=== PATIENT | female | born 1995 | race Asian ===

== ENCOUNTER 2025-02-05 14:24 | Outpatient (AMB) | payer OTHER, SELFPAY ==
--- NOTE | 2025-02-05 14:27 | MHC.PC.OV ---
Vital Signs 02/05/25 14:32 Height 5 ft 1.42 in Weight 118 lb 2 oz BMI 22.0 BP 90/64 Blood Pressure Location Lt brachial Position Sitting Respiration 12 Pulse 74 Pulse Source Pulse Oximeter Temp 98.4 F Temp Source Oral Pulse Oximetry (%) 98 Oxygen Delivery Method Room Air Intake Visit Reasons: therapeutic strategy lead est care Intake Note: New paient visit Torsion Spring Coiling Machine Setter Required: No Allergies No Known Allergies Allergy (Verified 02/05/25 14:27) Medication List - Last Reconciled 02/05/25 by Lindsey Espitia MD [minoxidile 1.5 with biotin hair ] Tobacco use date assessed: 02/05/25 Dental Screening Dental Screen Date: 02/05/25 Did you have a dental visit in the last 12 months?: No Did you have a dental problem in the last 6 months where you did not have access to dental care?: No Was dental information given to patient?: Patient has dentist HPI HPI Comments History of Present Illness Details 29 year old female with a past medical history of anxiety/depression presenting for Transferring from [place] practice in [place], [place] provider ?NARDA Kruse. Anxiety/depression: Follows with therapist. She was previously on SSRI which worked great for her but she feels like it dampened her creativity Has skin condition, cysts chest, sometimes axilla. sometimes they get red and painful. Requests dermatology referral Painful balls of the feet. Patient notes no matter how much she sleeps it is difficult for her to wake up. She notes that she is unsure if she snores Patient needs dray driver referral ROS see HPI PHYSICAL EXAM: GENERAL: Alert and oriented x 3. NAD EYES: EOMI. Anicteric. HENT: Moist mucous membranes. No scleral icterus. No cervical lymphadenopathy. LUNGS: Clear to auscultation bilaterally. CARDIOVASCULAR: Regular rate and rhythm. No murmur. No JVD. ABDOMEN: Soft, non-tender +bs EXTREMITIES: No edema. Non-tender. SKIN: No rashes or lesions. Warm. NEUROLOGIC: No focal neurological deficits. CN II-XII grossly intact PSYCHIATRIC: Cooperative. 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 1. Little interest or pleasure in doing things: not at all 2. Feeling down, depressed, or hopeless: not at all 3. Trouble falling or staying asleep, or sleeping too much: not at all 4. Feeling tired or having little energy: several days 5. Poor appetite or overeating: not at all 6. Feeling bad about yourself - or that you are a failure or have let yourself or your family down: not at all 7. Trouble concentrating on things, such as reading the newspaper or watching television: not at all 8. Moving or speaking so slowly that other people could have noticed. Or the opposite - being so fidgety or restless that you have been moving around a lot more than usual: not at all 9. Thoughts that you would be better off or of hurting yourself in some way: not at all Total score: 1 Depression Screening Interpretation: Negative Depression Screening Done: Yes 45872 - PHQ-9 Billing: Yes Source: Developed by Drs. Santi Joseph, Mimi Holman, Theo Bhandari and colleagues, with an educational julianna from [employer]. Thrive Questionnaire Date Thrive assessed: 02/05/25 I am a: Patient What is your living situation today?: I have a steady place to live Within the past 12 months, did the food you bought not last and you didn't have the money to get more?: Never true Within the past 12 months, did you worry whether your food would run out before you got money to buy more?: Never true Do you have trouble paying for medicines?: No Do you have trouble getting transportation to medical appointments?: No Do you have trouble paying your heating and electricity bill?: No Do you have trouble taking care of your child, family member or friend?: No Do you have trouble with day-to-day activities such as bathing, preparing meals, shopping, managing finances, etc.?: No Are you currently unemployed and looking for a job?: No Are you interested in more education?: No Please select the resources that you would like help with: Food and Utilities Currently or been in a relationship where the following occur: No concerns reported THRIVE Score: 0 AUDIT C Alcohol Use Questionnaire (AUDIT-C) 1. How often do you have a drink containing alcohol?: Monthly or less 2. How many drinks containing alcohol do you have on a typical day when you are drinking?: 1 or 2 3. How often do you have six or more drinks on one occasion?: Never Total Score: 1 DULCE MARIA-7 AMB Questionnaire DULCE MARIA-7 Date DULCE MARIA - 7 assessed: 02/05/25 Feeling nervous, anxious, or on edge: 0 = Not at all Not being able to stop or control worryin = Not at all Worrying too much about different things: 0 = Not at all Trouble relaxin = Not at all Being so restless that it is hard to sit still: 0 = Not at all Becoming easily annoyed or irritable: 0 = Not at all Feeling afraid as if something awful might happen: 0 = Not at all Total DULCE MARIA-7 score (0-4 normal; 5-9 mild; 10-14 moderate; 15-21 severe): 0 Source: Developed by Drs. Santi Joseph, Mimi Holman, Theo Bhandari and colleagues, with an educational julianna from [employer]. DULCE MARIA-7 Assessment Billing DULCE MARIA-7 Assessment Tool: DULCE MARIA-7 Assessment 88752 Physical exam (Primary Care) Vital Signs: Last Vital Signs Temp 98.4 F 02/05/25 14:32 Pulse 74 02/05/25 14:32 Resp 12 02/05/25 14:32 BP 90/64 02/05/25 14:32 Pulse Ox 98 02/05/25 14:32 Oxygen Delivery Method Room Air 02/05/25 14:32 BMI result Body Mass Index 22.0 Tobacco/Smoking Status: Tobacco use Status Tobacco use date assessed 02/05/25 02/05/25 14:35 Patient Tobacco Use Status Never used Tobacco 02/05/25 14:35 e-Cigarette/Vaping Use Never Used 02/05/25 14:35 PHQ-9: PHQ-9 Score PHQ-9: Total score 1 02/05/25 16:21 Depression Screening Interpretation: Negative Thrive Assessment: Date of Thrive Assessment Date Thrive assessed 02/05/25 02/05/25 16:21 Currently or been in a relationship where the following occur: No concerns reported Coding Level of Care Code New Pt Level 4 (21005) Complex EM visit Add On G2211 Diagnoses Fatigue, unspecified type R53.83 Fatigue type: unspecified History of small bowel obstruction Z87.19 Telogen effluvium L65.0 Additional Codes DULCE MARIA-7 Assessment Billing - DULCE MARIA-7 Assessment Tool: DULCE MARIA-7 Assessment 62793 ([id number]) PHQ-9 - 50439 - PHQ-9 Billing: Yes ([id number]) Assessment & Plan Assessment & Plan (1) Fatigue: Code(s): R53.83 - Other fatigue Category: Medical Qualifiers: Fatigue type: unspecified Qualified Code(s): R53.83 - Other fatigue (2) History of small bowel obstruction: Code(s): Z87.19 - Personal history of other diseases of the digestive system Category: Medical (3) Telogen effluvium: Code(s): L65.0 - Telogen effluvium Category: Medical Plan 29 year old female to establish care Multiple concerns all addressed Labs ordered Sleep study ordered Referral to obgyn, dermatology, podiatry Orders: Orders Complete Blood Count Auto Diff 02/05/25 L73.2 - Hidradenitis suppurativa, Z13.0 - Encounter for screening for diseases of the blood and blood-forming organs and certain disorders involving the immune mechanism, Z13.220 - Encounter for screening for lipoid disorders, Z13.228 - Encounter for screening for other metabolic disorders TSH reflex Free T4 02/05/25 L73.2 - Hidradenitis suppurativa, Z13.0 - Encounter for screening for diseases of the blood and blood-forming organs and certain disorders involving the immune mechanism, Z13.220 - Encounter for screening for lipoid disorders, Z13.228 - Encounter for screening for other metabolic disorders Vitamin D 25-OH (D2 and D3) 02/05/25 R53.83 - Other fatigue RT PSG in-lab sleep study 02/05/25 G47.10 - Hypersomnia, unspecified, R06.83 - Snoring Comprehensive Met. Panel 02/05/25 L73.2 - Hidradenitis suppurativa, Z13.0 - Encounter for screening for diseases of the blood and blood-forming organs and certain disorders involving the immune mechanism, Z13.220 - Encounter for screening for lipoid disorders, Z13.228 - Encounter for screening for other metabolic disorders Lipid Panel 02/05/25 L73.2 - Hidradenitis suppurativa, Z13.0 - Encounter for screening for diseases of the blood and blood-forming organs and certain disorders involving the immune mechanism, Z13.220 - Encounter for screening for lipoid disorders, Z13.228 - Encounter for screening for other metabolic disorders Vitamin B12 and Folate 02/05/25 R53.83 - Other fatigue Lyme IgG/IgM w/reflex to WB 02/05/25 R53.83 - Other fatigue Referrals Dermatology Referral L73.2 - Hidradenitis suppurativa 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
[2025-02-05 14:32] VITALS: BP 90/64; PULSE 74; RESP 12; TEMP 36.9; O2SAT 98; BMI 22.0
--- OUTSIDE RECORDS SUMMARY | 2025-02-05 15:40 | XMS_ITS | Clinical Summary ---
Author Organization [facility] Address [address] [place] [address] Care Team Providers Care Camp Manager Name Role Phone Unavailable Primary Care Provider Unavailabl e Social History Tobacco Use Types Packs/Day Years Used Date Smoking Tobacco: Never Assessed Sex and Gender Information Value Date Recorded Sex Assigned at Not on file Gender Identity Not on file Sexual Orientation Not on file Plan of Treatment Not on file
--- OUTSIDE RECORDS SUMMARY | 2025-02-05 15:40 | XMS_ITS | Encounter Summary ---
Author Organization [employer] [facility] Address [address] [place] [address] Phone Care Team Providers Care Aerodynamics Engineer Name Role Phone Korey Liu DO Primary Care Provider [phone] Reason for Visit * Reason Comments Medication Refill Encounter Details Date Type Department Care Team (Late st Contact Info) Description 10/23/[address] [place] [address] Korey Liu DO [address] [facility] [facility] [address] [place] [address] Medication Refill Social History Tobacco Use Types Packs/Day Years Used Date Smoking Tobacco: Never Alcohol Use Standard Drinks/Week Comments Not Currently 0 (1 standard drink = 0.6 oz pur e alcohol) Comments Unknown Sex and Gender Information Value Date Recorded Sex Assigned at Female 04/30/2020 6:43 PM EDT Legal Sex Female 6:12 PM EDT Gender Identity Gender non-conforming 04/30/2020 6:43 PM EDT Sexual Orientation Bisexual 04/30/2020 6: 43 PM EDT documented as of this encounter Miscellaneous Notes * Telephone Encounter - Nathalie Tobar - 10/23/2020 3:09 PM EDT Pt called to request refill of bupropion, diazepam, citalopram, and vit D be sent to [facility]. States [facility] only has Vitamind D script with no refills for 1.25mg. Requests a call to confirm when they were sent in documented in this encounter Plan of Treatment Not on file documented as of this encounter Visit Diagnoses Diagnosis Vitamin D deficiency Unspecified vitamin D deficiency documented in this encounter Additional Health Concerns Infection Onset Date Last Indicated Resolved Time R/O COVID-19 05/11/2022 05/11/2022 05/21/2022 7:18 PM EDT documented as of this encounter Care Teams Aerodynamics Engineer Relationship Specialty Start Date End Date Korey Liu DO [address] [address] PCP - General Family Medicine 04/30/20 documented as of this encounter
--- OUTSIDE RECORDS SUMMARY | 2025-02-05 15:40 | XMS_ITS | Clinical Summary ---
Author Organization [facility] Address [address] [place] [address] Care Team Providers Care Transmission Specialist Name Role Phone Alexa, Korey COLEY Primary Care Provider [phone] Allergies No known active allergies Medications buPROPion (WELLBUTRIN XL) 300 MG 24 hr tablet Take 300 mg by mouth every morning. Swallow whole; do not crush, chew, or divide. Active levonorgestrel (MIRENA) 20 mcg/24hr IUD Mirena 20 mcg/24 hours (6 yrs) 52 mg intrauterine device Take 1 device by intrauterine route. Active phenazopyridine (PYRIDIUM) 200 MG tabletIndicatio ns:Dysuria,Acut e cystitis with hematuria Take 1 tablet (200 mg total) by mouth 3 (three) times a day in the morning, mid-day and early evening. 6 tablet 3 Active Active Problems No known active problems Immunizations Immunization Administration Dates Next Due Influenza (AFLURIA/FLUZONE) Inactivated/Split Quadrivalent with Preservative IM 06/19/2019(Deferred: Patient decision) Social History Tobacco Use Types Packs/Day Years Used Date Smoking Tobacco: Never Smokeless Tobacco: Never Tobacco Cessation:Counseling Given: Not Answered Alcohol Use Standard Drinks/Week Comments Yes 0 (1 standard drink = 0.6 oz pur e alcohol) rarely Comments Unknown Sex and Gender Information Value Date Recorded Sex Assigned at Not on file Legal Sex Female 11:55 AM EDT Gender Identity Not on file Sexual Orientation Not on file Last Filed Vital Signs Vital Sign Reading Time Taken Comments Blood Pressure 100/70 07/10/2023 3:47 PM EST Pulse 77 07/10/2023 3:47 PM EST Temperature 37.3 C (99.2 F) 07/10/2023 3:47 PM EST Respiratory Rate - - Oxygen Saturation 99% 07/10/2023 3:47 PM EST Inhaled Oxygen Concentration - - Weight 49 kg (108 lb) 07/10/2023 3:47 PM EST Height 157.5 cm (5' 2 ) 07/10/2023 3:47 PM EST Body Mass Index 19.75 07/10/2023 3:47 PM EST Plan of Treatment Health Maintenance Due Date Last Done Comments Hepatitis C Virus Screening 1994 HIV Screening 2007 DTaP/Tdap/Td Vaccines (1 - Tdap) 2013 Hepatitis B Vaccines (1 of 3 - 19+ 3-dose series) 2013 COVID-19 Vaccine ( - season) 2024 11/16/2022, 07/07/2021, 10/02/2020, Additional history exists Influenza Vaccine 02/15/2025 06/13/2020 Pap Smear (Ages 21-65) 02/21/2026 02/21/2023 HPV Vaccines Aged Out No longer eligi ble based on patient's age to complete this topic Pneumococcal Vaccine: Pediatric (0-5 Years) and At-Risk Patients (6 to 49 Years) Aged Out No longer eligible based on patient's age to complete this topic Procedures Procedure Name Priority Date/Time Associated Diagnosis Comments THINPREP PAP TEST (PHARMACEUTICAL SALES SPECIALIST) WITH HPV REFLEX, GC/CT Routine 02/21/2023 12:00 AM EDT from Last 3 Months or Most Recently Relevant to Health Maintenance Results * ThinPrep Pap Test (Regulatory Assistant) with HPV Reflex, GC/CT (02/21/2023 12:00 AM EDT) Report Report [facility] Comment: Final Gynecological Cytology Report ThinPrep Pap Test with HPV Reflex, GC/Chlamydia SPECIMEN ADEQUACY: SATISFACTORY FOR EVALUATION; ENDOCERVICAL/TRANSFORMATION ZONE COMPONENT PRESENT. INTERPRETATION: NEGATIVE FOR INTRAEPITHELIAL LESION OR MALIGNANCY. Electronically Signed: Jose Goodson, JUS (ASCP) CLINICAL INFORMATION: LMP: NG Clinical History: RTN Biopsy Date: NG Specimen Source: Cervix, Endocervix Previous Pap Date: NG CPT Codes: 87499 ICD Codes: Z12.4 02/21/2023 02/21/2023 8:5 2 PM EDT Narrative [facility] - 2023 10:33 AM EDT AMENORRHEIC WITH MIRENA us Vee Holman MD LAB AMB PATH/CYTO ORDERABLE S Final Result Performing Organization Address City/[facility] Co de Phone Number [facility] [address], [place] from Last 3 Months or Most Recently Relevant to Health Maintenance Insurance [facility] Care Teams Transmission Specialist Relationship Specialty Start Date End Date Korey Liu DO PCP - General Family Medicine 10/06/22
--- OUTSIDE RECORDS SUMMARY | 2025-02-05 15:40 | XMS_ITS | Clinical Summary ---
[facility] Address [address] [place] [address] Care Team Providers Care Muck Boss Name Role Phone Unavailable Primary Care Provider Unavailabl e Social History Tobacco Use Types Packs/Day Years Used Date Smoking Tobacco: Never Assessed Comments Unknown Sex and Gender Information Value Date Recorded Sex Assigned at Not on file Legal Sex Female 5:05 AM EST Gender Identity Not on file Sexual Orientation Not on file Plan of Treatment Health Maintenance Due Date Last Done Comments DTaP,Tdap,and Td Vaccines (1 - Tdap) 2013 Hepatitis B Vaccines (1 of 3 - 19+ 3-dose series) 2013 Cervical Cancer Screening: P ap Smear 2015 COVID-19 Vaccine ( - 2023-2 5 season) 2024 Depression Screening 07/18/2024 Influenza Vaccine (#1) 2025 HIB Vaccines Aged Out No longer eligi ble based on patient's age to complete this topic HPV Vaccines Aged Out No longer eligi ble based on patient's age to complete this topic Hepatitis A Vaccines Aged Out No long er eligible based on patient's age to complete this topic IPV Vaccines Aged Out No longer eligi ble based on patient's age to complete this topic MMR Vaccines Aged Out No longer eligi ble based on patient's age to complete this topic Meningococcal ACWY Vaccine Aged Out N o longer eligible based on patient's age to complete this topic Meningococcal B Vaccine Aged Out No l onger eligible based on patient's age to complete this topic Pneumococcal Vaccine: Pediat rics (0 to 5 Years) and At-Risk Patients (6 to 49 Years) Aged Out No longer eligible b ased on patient's age to complete this topic RSV Immunization Patients Un rosalind 20 months Aged Out No longer eligible b ased on patient's age to complete this topic Varicella Vaccines Aged Out No longer eligible based on patient's age to complete this topic
== END 2025-02-05 15:01 | disposition home or self-care (01) ==
LOC: HO.HMCFM 14:25
PROVIDERS: PCP Internal Medicine; Visit Provider Internal Medicine
DX: R53.83 Other fatigue (principal); Z87.19 Personal history of other diseases of the digestive system; L65.0 Telogen effluvium

== ENCOUNTER → 2025-02-05 14:24 | Outpatient (BNVA) | payer OTHER, SELFPAY | PROVIDERS: PCP Internal Medicine; Visit Provider Internal Medicine | DX: L65.0 Telogen effluvium (principal); R53.83 Other fatigue; L73.2 Hidradenitis suppurativa; F41.9 Anxiety disorder, unspecified; F32.A Depression, unspecified; G47.10 Hypersomnia, unspecified; R06.83 Snoring; M79.673 Pain in unspecified foot; Z87.19 Personal history of other diseases of the digestive system; Z97.5 Presence of (intrauterine) contraceptive device; Z13.31 Encounter for screening for depression; Z13.39 Encounter for screening examination for other mental health and behavioral disorders; Z13.0 Encounter for screening for diseases of the blood and blood-forming organs and certain disorders involving the immune mechanism; Z13.220 Encounter for screening for lipoid disorders; Z13.228 Encounter for screening for other metabolic disorders | CPT/HCPCS: 36415; 80053; 80061; 82306; 82607; 82746; 84443; 85025; 86618; 96127; 99202 ==

== ENCOUNTER 2025-02-05 15:08 | Outpatient (REF) | payer OTHER, SELFPAY ==
[2025-02-05 18:20] LABS: Hematocrit 42.1 % (37.0-47.0); Hemoglobin 14.2 g/dl (12.0-16.0); Imm Gran Abs Auto 0.02 X10*3/uL (0.00-0.03); Imm Gran Pct Auto 0.2 % (0.0-0.4); Lymphocytes Absolute Auto 1.7 X10*3/uL (1.2-4.9); MANUAL DIFF FLAG SCAN; Mean Corpuscular HGB Conc 33.7 g/dl (31.0-35.0); Mean Corpuscular Hemoglobin 31.3 pg (27.0-33.0); Mean Corpuscular Volume 92.9 fL (80.0-98.0); NRBC Abs Auto 0.000 X10*3/uL (0.0-0.012); NRBC Pct Auto 0.0 /100WBC (0.0-0.2); PLT CLUMP 1; Red Blood Count 4.53 X10*6/uL (4.20-5.50); SCAN SMEAR FLAG 1
[2025-02-05 18:30] LABS: Alanine Aminotransferase 24 U/L (0-31); Albumin Level 4.6 g/dL (3.5-5.0); Alkaline Phosphatase 54 U/L (39-117); Anion Gap 12 (12-20); Aspartate Amino Transferase 23 U/L (5-31); Blood Urea Nitrogen 10 mg/dL (9-16); Calcium 9.2 mg/dL (8.4-10.2); Carbon Dioxide 23 mmol/L (22-29); Chloride 108 mmol/L (96-108); Cholesterol 164 mg/dL (<200); Estimated Glomerular Filt Rate > 60; HDL Cholesterol 57 mg/dL (>40); Potassium 3.7 mmol/L (3.3-5.1); Sodium 139 mmol/L (135-145); Total Protein 7.8 g/dL (6.5-8.0); Triglycerides 50 mg/dL (<150)
[2025-02-05 18:41] LABS: Platelet Count 213 X10*3/uL (160-400); White Blood Count 8.3 X10*3/uL (4.8-10.8)
[2025-02-05 18:57] LABS: Folate 8.9 ng/mL (> or = 4.0); Vitamin B12 552 pg/mL (200-900)
[2025-02-06 05:38] LABS: Lyme Abs Screen <0.90 index
[2025-02-10 15:33] LABS: Vitamin D 25-OH, D2 <4 ng/mL; Vitamin D 25-OH, D3 30 ng/mL; Vitamin D 25-OH, Total 30 ng/mL (30-100)
== END 2025-02-05 15:09 | disposition home or self-care (01) ==
LOC: HO.WFDLDS 15:08
PROVIDERS: Visit Provider Internal Medicine
DX: Z13.89 Encounter for screening for other disorder (principal)
CPT/HCPCS: 36415; 80053; 80061; 82306; 82607; 82746; 84443; 85025; 86617; 86618